=== PATIENT | female | born 1975 | race African-American/Black ===

== ENCOUNTER 2022-08-18 09:40 | Outpatient (CLI) | payer OTHER | END 2022-08-18 09:41 | disposition home or self-care (01) | LOC: BICRAD 09:40 | PROVIDERS: ATTEND Preventive Medicine Occupational Medicine | DX: M25.561 Pain in right knee (principal); M54.50 Low back pain, unspecified; M47.816 Spondylosis without myelopathy or radiculopathy, lumbar region; M17.11 Unilateral primary osteoarthritis, right knee | CPT/HCPCS: 72100 ==